=== PATIENT | female | born 1955 | race Two or more races ===

== ENCOUNTER 2022-08-25 10:09 | Emergency (ER) | payer OTHER, MEDICAID ==
[~2022-08-25] VITALS: Ht 160 cm; Wt 82.6 kg
[2022-08-25 12:46] VITALS: BP 110/57
== END 2022-08-25 12:46 | disposition home or self-care (01) ==
LOC: ER 10:09
DX: I82.401 Acute embolism and thrombosis of unspecified deep veins of right lower extremity (principal)
CPT/HCPCS: 73502; 93971

== ENCOUNTER 2025-04-03 11:45 | Emergency (ER) | payer OTHER, MEDICAID ==
[~2025-04-03] VITALS: Ht 160 cm; Wt 80.8 kg
--- NOTE | 2025-04-03 12:14 | ED.PDOC ---
Desmond. trauma (HPI) HPI Comments 69 y/o F, with PMHx of thyroid disease presents to the ED for CC of neck pain. Patient states, that she was out shopping yesterday (04/02/25), when a bedding set fell on her head. As a result to trauma, patient reports experiencing slight dizziness. Following trauma, patient c/o neck pain and stiffness when attempting to move her head laterally. Symptoms are rated mild to moderate. Took [id number] Tylenol with improvement. Patient concerned about a possible fractures. Patient denies LOC, nausea, vomiting, or blurred vision. No other symptoms or modifying factors present at this time. The patient denies being on blood thinners at this time. 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 History: No Pertinent PRODUCT AMBASSADOR History Family History Family History: Reviewed,noncontributory to illness Social History Smoker: Non-Smoker Alcohol: Denies ETOH Use Drugs: Denies Drug Use Lives In: Home Constitutional: denies: chills, diaphoresis, fatigue, fever, malaise, sweats, weakness, others EENTM: denies: blurred vision, double vision, ear bleeding, ear discharge, ear drainage, ear pain, ear ringing, eye pain, eye redness, hearing loss, mouth pain, mouth swelling, nasal discharge, nose bleeding, nose congestion, nose pain, photophobia, tearing, throat pain, throat swelling, voice changes, others Respiratory: denies: cough, hemoptysis, orthopnea, SOB at rest, shortness of breath, SOB with excertion, stridor, wheezing, others Cardiovascular: denies: chest pain, dizzy spells, diaphoresis, Dyspnea on exertion, edema, irregular heart beat, left arm pain, lightheadedness, palpitations, PND, syncope, others Gastrointestinal: denies: abdomen distended, abdominal pain, blood streaked bowels, constipated, diarrhea, dysphagia, difficulty swallowing, hematemesis, melena, nausea, poor appetite, poor fluid intake, rectal bleeding, rectal pain, vomiting, others Genitourinary: denies: abnormal vagina bleeding, burning, dyspareunia, dysuria, flank pain, frequency, hematuria, incontinence, pain, , vagina discharge, urgency, others Neurological: reports: dizziness; denies: fainting, headache, left sided numbness, left sided weakness, numbness, paresthesia, pre-existing deficit, right sided numbness, right sided weakness, seizure, speech problems, tingling, tremors, weakness, others Musculoskeletal: reports: neck pain; denies: back pain, gout, joint pain, joint swelling, muscle pain, muscle stiffness, others Integumetry: denies: bruises, change in color, change in hair/nails, dryness, laceration, lesions, lumps, rash, wounds, others Allergic/Immunocompromised: denies: Difficulty Healing, Frequent Infections, Hives, Itching, others Hematologic/Lymphatic: denies: anemia, blood clots, easy bleeding, easy bruising, swollen glands, others Endocrine: denies: excessive hunger, excessive sweating, excessive thirst, excessive urination, flushing, intolerance to cold, intolerance to heat, unexplained weight gain, unexplained weight loss, others Psychiatric: denies: anxiety, bipolar disorder, depression, hopeless, panic disorder, schizophrenia, sleepless, suicidal, others All Other Systems: Reviewed and Negative Physical Exam General Appearance: No Apparent Distress, Normal HEENT: Normal ENT Inspection, Pharynx Normal Neck: Limited Range of Motion, Normal, Normal Inspection Respiratory: Chest Non-Tender, Lungs Clear, No Accessory Muscle Use, No Respiratory Distress, Normal Breath Sounds Cardiovascular: No Murmur, No Gallop, Regular Rate/Rhythm Breast Exam: Deferred Gastrointestinal: No Organomegaly, Non Tender, No Pulsatile Mass, Normal Bowel Sounds, Soft Genitalia: Deferred Pelvic: Deferred Rectal: Deferred Extremities: No calf tenderness, Normal capillary refill, Normal inspection, Normal range of motion, Non-tender, No pedal edema Musculoskeletal : Apperance: Normal Neurologic: Alert, plasma table operator II-XII nml as Tested, No Motor Deficits, Normal Affect, Normal Mood, No Sensory Deficits Cerebellar Function: Normal Reflexes: Normal Skin: Dry, Normal Color, Warm Lymphatic: No Adenopathy Was a procedure done? Was a procedure done?: No Differential Diagnosis Multiple Trauma: Closed Head Injury, Other (concussion) Neck Injury: Cervical Sprain, Cervical Strain X-Ray, Labs, Meds, VS Vital Signs Date Time Temp Pulse Resp B/P (MAP) Pulse Ox O2 Delivery O2 Flow Rate FiO2 04/03/25 12:02 98.5 77 18 123/64 (83) 95 98.5 [place] [address] Ph: [phone] DIAGNOSTIC IMAGING Diagnostic Imaging Report : [id number] Signed PATIENT: STU BLACKWOOD ACCT: [id number] UNIT: [id number] : 1955 LOC: ER ROOM / BED: / AGE / SEX: 69 / F ADM STATUS: REG ER SERVICE 1201 ORDERING PHYSICIAN: DAVIN COMBS TAVERN OPERATOR PROCEDURE(s): CERV2 - CERVICAL SPINE 3V REASON: r/o fracture ORDER NUMBER(s): [id number], ACCESSION NUMBER(s): [id number] INDICATION: Pain; r/o fracture COMPARISON: None TECHNIQUE: 4 views of the cervical spine were obtained. FINDINGS: The cervical vertebral alignment is normal. The predental space is normal. The intervertebral disc spaces are well-maintained. No significant facet arthropathy is noted. No acute fracture, vertebral compression deformity or aggressive osseous lesions. The imaged lung apices are unremarkable. IMPRESSION: No acute fracture. ATED BY: GIDEON SON MD DICTATED DATE/TIME: 04/03/25 1226 SIGNED BY: GIDEON SON MD SIGNED DATE/TIME: 04/03/25 1226 CC: X-Ray, Labs, Meds, VS Comment 69 y/o F, with PMHx of thyroid disease presents to the ED for CC of neck pain. Patient arrives alert and oriented, ABC's intact, afebrile, vital signs stable, saturating well in room air Cervical x-ray ordered to rule out fracture. Results were negative. Findings are consistent with no red flags at this time ED workup: Defer further imaging and lab work for outpatient follow up at this time Disposition: Discharge. Strict return precautions discussed with the patient with full understanding. Supportive care advised (rest, ice, heat, NSAIDs, stretching exercises) Massage muscles with cold pack or ice for 20 minutes 4 times per day. Usually most useful if there is swelling during the first 48 hours Heating pad on the most painful area for 20 minutes to relieve muscle spasm Sleep and the most comfortable sleeping position (usually on the side with knees bent) Light stretching, no strenuous activity, avoid frequent bending, avoid carrying heavy objects Discussed possible benefits of yoga and acupuncture Patient is stable for discharge at this time. External notes reviewed. Test results and diagnostic imaging interpreted. All diagnostic findings, discharge care, education and instructions provided Follow-up with PCP in 2 to 3 days Patient verbalized understanding and agreed to treatment plan Vital signs stable, afebrile, no acute distress noted Patient ambulatory with strong steady gait Advised to return precautions for any new or worsening symptoms, return to ER immediately for re-evaluation Patient is aware that the purpose of this visit was for an acute medical emergency requiring emergent stabilization. Chronic conditions, including malignancies have not been ruled out. Patient is instructed to follow up with PCP as directed and discharge instructions for continued care and workup. If unable to arrange follow-up, patient is to return to the emergency department for reassessment. Patient (parent or legal guardian if applicable) was given verbal and written discharge instructions and acknowledges understanding. Additional MDM Review of External, Non-ED records: External records reviewed. Discussion with independent historian (EMS, family) history obtained from the patient/parents (if applicable) at bedside Chronic conditions affecting care: None Social determinants of health affecting care: None Consideration of admission (observation or admission): I considered escalation of care to admission for this patient, however given the reassuring workup, the patient is safe for outpatient management. Discussion with the Radiology: No Tests considered but not performed: Prescription medication considered but not given: 12 lead EKG interpretation: Time of 1ST Reevaluation: 12:30 Reevaluation 1ST: Unchanged Time of 2ND Reevaluation: 12:55 Reevaluation 2ND: Improved Patient Education/Counseling: Diagnosis, Treatment Family Education/Counseling: No Family Present Departure 1 Departure Time of Disposition: 12:56 Impression: Primary Impression: Cervicalgia Additional Impression: Blunt trauma of neck Qualified Codes: S19.80XA - Other specified injuries of unspecified part of neck, initial encounter Disposition: HOME / SELF CARE / HOMELESS Condition: Stable e-Prescriptions Lidocaine (LIDODERM 5% TOPICAL PATCH) 1 Patch Ph 1 PATCH TOP DAILY for 30 Days, #30 PATCH 0 Refills Prov: DAVIN COMBS NP 04/03/25 Critical Care Note Critical Care Time?: No Stability Stability form required: No Heart Score Heart Score: Heart Score Response (Comments) Value History N/A 0 EKG N/A 0 Age N/A 0 Risk Factors N/A 0 Troponin N/A 0 Total 0 I personally scribed for DAVIN COMBS NP ([email or web address]) on 04/03/25 at 12:14. Electronically submitted by Anusha Mancia (Relayr). I personally scribed for DAVIN COMBS NP ([email or web address]) on 04/03/25 at 12:41. Electronically submitted by Anusha Mancia (Relayr). I personally scribed for DAVIN COMBS NP ([email or web address]) on 04/03/25 at 12:42. Electronically submitted by Anusha Mancia (Relayr). DAVIN COMBS NP Apr 03, 2025 12:14
--- NOTE | 2025-04-03 12:29 | DVH ---
INDICATION: Pain; r/o fracture COMPARISON: None TECHNIQUE: 4 views of the cervical spine were obtained. FINDINGS: The cervical vertebral alignment is normal. The predental space is normal. The intervertebral disc spaces are well-maintained. No significant facet arthropathy is noted. No acute fracture, vertebral compression deformity or aggressive osseous lesions. The imaged lung apices are unremarkable. IMPRESSION: No acute fracture.
[2025-04-03] MEDS ORDERED: LIDO5DIS21 TOP (12:57)
[2025-04-03 13:05] VITALS: BP 120/64; PULSE 77; RESP 16; TEMP 98.6; O2SAT 98
== END 2025-04-03 13:16 | disposition home or self-care (01) ==
LOC: ER 11:45
DX: S19.80XA Other specified injuries of unspecified part of neck, initial encounter (principal); E03.9 Hypothyroidism, unspecified; Z98.51 Tubal ligation status; W18.39XA Other fall on same level, initial encounter; Y93.89 Activity, other specified; Y92.89 Other specified places as the place of occurrence of the external cause; Y99.8 Other external cause status
CPT/HCPCS: 72040